=== PATIENT | male | born 1985 | race African-American/Black ===

== ENCOUNTER 2019-03-28 03:41 | Emergency (ER) | payer OTHER ==
[~2019-03-28] VITALS: Ht 180.3 cm; Wt 86.4 kg
[2019-03-28] MEDS ORDERED: CLAR10CA3 PO (04:56)
[2019-03-28] MEDS ORDERED: NAPRPOW4 PO (04:56)
--- NOTE | 2019-03-28 06:00 | REPVR ---
PROCEDURE INFORMATION: Exam: US Pelvis Limited, Male Exam date and time: 03/28/2019 5:40 AM Age: 34 years old Clinical history: Pelvic pain; Additional info: Abd pain, possible inguinal hernia TECHNIQUE: Imaging protocol: Real-time pelvic ultrasound with image documentation. COMPARISON: No relevant prior studies available. FINDINGS: The right and left inguinal canals are normal in appearance with no evidence of bowel, fluid or solid masses. No abnormal vascularity noted. IMPRESSION: No sonographic evidence of right or left inguinal hernia . Electronically signed by: Trell Mooney On 03/28/2019 06:00:04 AM
--- NOTE | 2019-03-28 07:53 | REP ---
Clinical: Right-sided abdominal pain. Technique: Upright view of the chest with supine and upright views of the abdomen and pelvis. Findings: Frontal upright view of the chest demonstrates no acute cardiopulmonary process or free air below the diaphragm to suspect pneumoperitoneum. Supine and upright views of the abdomen and pelvis demonstrate nonspecific bowel gas pattern without obstruction or perforation. No organomegaly. No abnormal calcifications. Skeletal structures normal for age. Impression: Nonspecific bowel gas pattern. Electronically Signed by Reed Smith MD 03/28/2019 07:44 A
[2019-03-28 08:29] LABS: ALBUMIN 4.1 GM/DL (3.2-5.2); ALT/SGPT 20 U/L (12-78); BILIRUBIN,DIRECT 0.1 MG/DL (0.0-0.2); BILIRUBIN,TOTAL 0.7 MG/DL (0.2-1.0); BLOOD UREA NITROGEN 8 MG/DL (7-18); CALCIUM LEVEL 9.2 MG/DL (8.5-10.1); CARBON DIOXIDE LEVEL 26 MEQ/L (21-32); CHLORIDE LEVEL 107 MEQ/L (98-107); CREATININE FOR GFR 1.19 MG/DL (0.70-1.30); GLOMERULAR FILTRATION RATE > 60.0 (>60); GLUCOSE, FASTING 89 MG/DL (70-100); SODIUM LEVEL 140 MEQ/L (136-145); TOTAL PROTEIN 7.2 GM/DL (6.4-8.2)
[2019-03-28 08:45] LABS: HEMATOCRIT 39.8 % (42.0-52.0); MEAN CORPUSCULAR HEMOGLOBIN 27.8 pg (27.0-33.0); MEAN CORPUSCULAR HGB CONC 32.7 g/dl (32.0-36.5); PLATELET COUNT, AUTOMATED 197 10^3/uL (150-450); RED BLOOD COUNT 4.68 10^6/uL (4.30-6.10)
[2019-03-28 11:07] VITALS: BP 144/65
== END 2019-03-28 11:09 | disposition home or self-care (01) ==
LOC: M ED 03:41
DX: R10.9 Unspecified abdominal pain (principal); M40.50 Lordosis, unspecified, site unspecified; G43.909 Migraine, unspecified, not intractable, without status migrainosus; F17.200 Nicotine dependence, unspecified, uncomplicated; Z79.899 Other long term (current) drug therapy; Z91.018 Allergy to other foods